=== PATIENT | female | born 1950 | race Caucasian/White ===

== ENCOUNTER 2016-10-09 09:12 | Day surgery (SDC) | payer MEDICARE, OTHER ==
--- NOTE | ~2016-10-09 | EGD ---
EGD REPORT [facility] [address] [address] NAME: HARDIK SMITH : [birth year] STATUS : [facility]#: [id number] AGE: 65 ADM/REG DATE : 10/09/16 MR#: [id number] REPORT SERV DATE: 10/09/16 DICTATED BY: GAVINO SILVA DATE: 10/09/16 REPORT STATUS : Draft TRANSCRIBED BY: [employer] DATE: 10/09/16 [facility] Patient Name: Hardik Smith Date of : 1950 Attending MD: GAVINO SILVA MD Procedure Date No Time: 10/09/2016 Procedure: Upper GI endoscopy Indications: Heartburn, Suspected esophageal reflux, Abdominal bloating Referring MD: RAFAEL KIM MD Medicines: as per anesthesia Complications: No immediate complications. Procedure: Pre-Anesthesia Assessment: - ASA Grade Assessment: III - A patient with severe systemic disease. After obtaining informed consent, the endoscope was passed under direct vision. Throughout the procedure, the patient's blood pressure, pulse, and oxygen saturations were monitored continuously. The GIF H190 [id number] was introduced through the mouth, and advanced to the third part of duodenum. The upper GI endoscopy was accomplished without difficulty. The patient tolerated the procedure. Findings: The examined esophagus was normal. The entire examined stomach was normal. The cardia and gastric fundus were normal on retroflexion. The examined duodenum was normal. Biopsies were taken with a cold forceps for histology. Impression: - Normal esophagus. - Normal stomach. - Normal examined duodenum. Biopsied. Recommendation: - Await pathology results. - Follow an antireflux regimen. - Continue present medications. Procedure Code(s): --- Professional --- 39214, Esophagogastroduodenoscopy, flexible, transoral; with biopsy, single or multiple Diagnosis Code(s): --- Professional --- R12, Heartburn EGD REPORT [facility] [address] [place], [place] [address] [address]. [address] NAME: HARDIK SMITH : [birth year] STATUS : [facility] PAT#: [id number] AGE: 65 ADM/REG DATE : 10/09/16 MR#: [id number] REPORT SERV DATE: 10/09/16 DICTATED BY: GVAINO SILVA. DATE: 10/09/16 REPORT STATUS : Draft TRANSCRIBED BY: [employer] DATE: 10/09/16 R14.0, Abdominal distension (gaseous) CPT copyright 2013 [employer]. All rights reserved. The codes documented in this report are preliminary and upon weld engineer review may be revised to meet current compliance requirements. GAVINO SILVA MD 10/09/2016 10:31 AM This report has been signed electronically. Number of Addenda: 0 Note Initiated On: 10/09/2016 10:14 AM Scope Withdrawal Time 0 hours 0 minutes 0 seconds [address] [place] [address]
--- NOTE | ~2016-10-09 | EGD ---
EGD REPORT [facility] [address] [address] NAME: HARDIK CHAU : [birth year] STATUS : [facility]#: [id number] AGE: 65 ADM/REG DATE : 10/09/16 MR#: [id number] REPORT SERV DATE: 10/09/16 DICTATED BY: GAVINO SILVA DATE: 10/09/16 REPORT STATUS : Draft TRANSCRIBED BY: [employer] DATE: 10/09/16 [facility] Patient Name: Hardik Chau Date of : 1950 Attending MD: GAVINO SILVA MD Procedure Date No Time: 10/09/2016 Procedure: Colonoscopy Indications: High risk colon cancer surveillance: Personal history of colonic polyps Referring MD: RAFAEL KIM MD Medicines: as per anesthesia Complications: No immediate complications. Procedure: Pre-Anesthesia Assessment: - ASA Grade Assessment: III - A patient with severe systemic disease. After I obtained informed consent, the scope was passed under direct vision. Throughout the procedure, the patient's blood pressure, pulse, and oxygen saturations were monitored continuously. The PCF [id number] was introduced through the anus and advanced to the cecum, identified by appendiceal orifice and ileocecal valve. The colonoscopy was somewhat difficult due to significant looping and a tortuous colon. The patient tolerated the procedure. The quality of the bowel preparation was adequate to identify polyps. Findings: The perianal and digital rectal examinations were normal. Internal hemorrhoids were found during endoscopy and were mild. Impression: - Internal hemorrhoids. Recommendation: - Repeat colonoscopy in 5 years for surveillance. Procedure Code(s): --- Professional --- 55183, Colonoscopy, flexible, proximal to splenic flexure; diagnostic, with or without collection of specimen(s) by brushing or washing, with or without colon decompression (separate procedure) Diagnosis Code(s): --- Professional --- K64.8, Other hemorrhoids Z86.010, Personal history of colonic polyps EGD REPORT [facility] [address] [facility] [place]. [address] NAME: HARDIK CHAU : [birth year] STATUS : [facility]#: [id number] AGE: 65 ADM/REG DATE : 10/09/16 MR#: [id number] REPORT SERV DATE: 10/09/16 DICTATED BY: GAVINO SILVA. DATE: 10/09/16 REPORT STATUS : Draft TRANSCRIBED BY: [employer] DATE: 10/09/16 CPT copyright 2013 [employer]. All rights reserved. The codes documented in this report are preliminary and upon hydraulic design engineer review may be revised to meet current compliance requirements. GAVINO SILVA MD 10/09/2016 10:51 AM This report has been signed electronically. Number of Addenda: 0 Note Initiated On: 10/09/2016 10:10 AM Scope Withdrawal Time 0 hours 7 minutes 14 seconds [address] [facility] [place] [address]
[~2016-10-09 09:12] MED LIST: ASAB PO; COREG3 PO; CRESTOR5 MG PO; DEXILANT OR; DRISDOL50000 UNT PO; ESTRACE1 MG PO; ESTRADIOL0.1 MG TD; ESTRADIOL1 MG OR; LEVOTHROID50 MCG PO; LIDODERM T; LINZESS 145 M145 MCG PO; LIPITOR20 PO; NEXIUM40 PO; PLAVIX PO; PREV30 PO; PROAIR HFA INH; PULMICORT180 MCG INH; PULMICORT90 MCG INH; SYN.05 PO; SYN075 PO; TRAZ50 PO; X25 PO; XANAX1 MG PO; ZESTORETIC PO; ZOCOR20 PO; ZOL50 PO
== END 2016-10-09 23:59 | disposition home health service (06) ==
LOC: DMU 09:12
PROVIDERS: Internal Medicine Gastroenterology
PROC: 0DJD8ZZ Inspection of Lower Intestinal Tract, Via Natural or Artificial Opening Endoscopic (ICD-10-PCS; principal; 2016-10-09 10:30)
PROC: 0DB98ZX Excision of Duodenum, Via Natural or Artificial Opening Endoscopic, Diagnostic (ICD-10-PCS; 2016-10-09 10:30)
DX: K64.8 Other hemorrhoids (principal); I10 Essential (primary) hypertension; E78.00 Pure hypercholesterolemia, unspecified; I25.10 Atherosclerotic heart disease of native coronary artery without angina pectoris; J44.9 Chronic obstructive pulmonary disease, unspecified; M19.90 Unspecified osteoarthritis, unspecified site; K21.9 Gastro-esophageal reflux disease without esophagitis; F32.9 Major depressive disorder, single episode, unspecified; E03.9 Hypothyroidism, unspecified; F41.0 Panic disorder [episodic paroxysmal anxiety]; Z86.010 Personal history of colon polyps; Z88.5 Allergy status to narcotic agent
CPT/HCPCS: 88305

== ENCOUNTER 2016-12-09 05:19 | Observation (INO) | payer MEDICARE, OTHER ==
--- NOTE | ~2016-12-09 | HP ---
History And Physical [facility] [address] [place]. [address] NAME: HARDIK CHAU : [birth year] STATUS : [facility] PAT#: [id number] AGE: 66 ADM/REG DATE : 12/09/16 MR#: [id number] REPORT SERV DATE: 12/09/16 DICTATED BY: DIANE ENGLAND DATE: 12/09/16 REPORT STATUS : Draft TRANSCRIBED BY: [employer] DATE: 12/09/16 DATE OF ADMISSION: 12/09/2016 PRIMARY PRODUCT SAFETY ADMINISTRATOR: Alvaro Padron M.D., Ph.D, F.A.C.C. CHIEF COMPLAINT: Palpitations. HISTORY OF PRESENT ILLNESS: This is a 66-year-old female with history of CAD, who awoke around 4 o'clock this morning experiencing palpitations. She states it was accompanied with significant dizziness, shaking and shortness of breath, but no chest pain. Because the heart "did not feel right," she took two nitroglycerin and also two aspirin. She also took her estradiol and Synthroid because she had not taken these in the last several days having run out. Shortly thereafter, she called EMS and EKG indicated atrial fibrillation with a heart rate of 148 beats per minute. IV Cardizem was started with bolus and she was transported here to our emergency department, where she had already attained normal sinus rhythm. She continues to be in normal sinus rhythm. She has no prior history of atrial fibrillation, although Holter monitor in the past has shown some PACs. She has been on carvedilol for this, but has not taken it in a week, saying that it has made her legs feel "weak." Again, she denies any recent chest pains. MEDICAL HISTORY: 1. Coronary artery disease with history of stent to the RCA x2 in 2007 and stent to the OM2 in 07/2015. 2. Mixed hyperlipidemia, intolerant of statins. 3. Chest pain syndrome. 4. Anxiety and depression. 5. History of gastritis. 6. Tobacco abuse. SURGICAL HISTORY: 1. Cholecystectomy. 2. Hysterectomy. 3. Right meniscus repair. HOME MEDICATIONS: Xanax 0.25 mg q.h.s. p.r.n., aspirin 81 q.h.s., Pulmicort one puff b.i.d. p.r.n., carvedilol 3.125 b.i.d., Plavix 75 daily, estradiol 1 mg q.h.s., Synthroid 50 mcg four times per week and 75 mcg other days of the week, Linzess 145 mcg before breakfast, Protonix 40 mg before breakfast, Zoloft 50 with breakfast, and trazodone 50 q.h.s. ALLERGIES: STATINS CAUSE MUSCLE WEAKNESS. CODEINE CAUSES SHORTNESS OF BREATH AND RASH. SOCIAL HISTORY: The patient is , at bedside. She works as a hr receptionist. She drinks two alcoholic beverages daily and smokes five to eight cigarettes per day. Denies illicit drug use. FAMILY HISTORY: Brother with coronary artery disease at age 45. History And Physical [address] [address] NAME: HARDIK CHAU : [birth year] STATUS : [facility] PAT#: [id number] AGE: 66 ADM/REG DATE : 12/09/16 MR#: [id number] REPORT SERV DATE: 12/09/16 DICTATED BY: DIANE ENGLAND DATE: 12/09/16 REPORT STATUS : Draft TRANSCRIBED BY: FREDDIE DATE: 12/09/16 REVIEW OF SYSTEMS: Negative, except as indicated above. PHYSICAL EXAMINATION: VITAL SIGNS: Blood pressure 119/61, heart rate 66, temperature 97.6, pulse oximetry 96% on room air. BMI 25.4. GENERAL: Well developed, well nourished, in no acute distress. HEENT: Anicteric. Normal EOM. Head, normocephalic. PERRLA, no xanthelasma. NECK: Supple. No JVD. Carotids normal without bruits. LUNGS: Clear to auscultation bilaterally anterior and posterior. Respirations even and unlabored. CARDIAC: S1, S2. Regular rate and rhythm. No murmurs, rubs, or gallops. No chest wall tenderness. ABDOMEN: Normal bowel sounds. Soft and nontender to palpation. No masses or organomegaly. EXTREMITIES: No peripheral edema. DP/PT and radial pulses palpable bilaterally. No clubbing or cyanosis. SKIN: Warm and dry. Normal turgor. No pallor or cyanosis. MUSCULOSKELETAL: Moving all extremities x4. Normal muscle strength. NEURO/PSYCH: Alert and oriented with appropriate affect. LABORATORY DATA: White blood count 4.8, hemoglobin 13.5, hematocrit 39.7. D-dimer less than 0.27. Sodium 145, potassium 3.6, BUN 16, creatinine 0.8. Troponin less than 0.02 x2. Chest x-ray shows lungs clear, no acute processes. EKGs, interpreted by myself, indicate normal sinus rhythm on two EKGs here at our facility with no ischemic changes. ASSESSMENT AND PLAN: 1. Paroxysmal atrial fibrillation, new onset in this 66-year-old female with a CHADS2-VASc score of 3. Discussed with the patient CVA prophylaxis measures. This was also discussed with the patient by Dr. Cruz. We recommend starting anticoagulation, and the patient was informed regarding lack of reversal agent on the newer oral anticoagulants. She agrees to starting, and we will provide her with a 30-day prescription and then subsequent refills. We will also plan to change her carvedilol to metoprolol 12.5 mg p.o. b.i.d. given her history of low blood pressure. I have also advised her to decrease alcohol consumption. The patient may benefit from outpatient sleep study as she does state that she does snore at times and wakes up not feeling rested. We will go ahead and discharge her home with an outpatient echocardiogram next week and then follow up with her primary strainer mill operator, Dr. Padron, in the next three to four weeks. 2. Coronary artery disease with history of stents. No current or recent chest pain. We will continue her home medications with the exception of discontinuing Plavix. It has been over a year since stent placement to the 2. 3. Mixed hyperlipidemia, not on statin therapy secondary to myalgias. 4. Tobacco use. Encouraged complete cessation. History And Physical [address] [address] NAME: HARDIK CHAU : [birth year] STATUS : [facility] PAT#: [id number] AGE: 66 ADM/REG DATE : 12/09/16 MR#: [id number] REPORT SERV DATE: 12/09/16 DICTATED BY: DIANE ENGLAND DATE: 12/09/16 REPORT STATUS : Draft TRANSCRIBED BY: FREDDIE DATE: 12/09/16 TONY/FREDDIE Diane England NP / [id number] CC: Tawana Barrientos, MSN, IRRIGATION MANAGER- Darrell Grajeda M.D. Alvaro Padron M.D., Ph.D, F.A.C.C.
[2016-12-09 06:12] LABS: BASOPHILS 0.6 %; BASOPHILS ABSOLUTE 0.03 10/3/uL (0.0-0.16); EOSINOPHILS 2.9 %; EOSINOPHILS ABSOLUTE 0.14 10/3/uL (0.0-0.53); ER CBC TAT 0 Hrs 08 Mins; HEMATOCRIT 39.7 % (36.0-48.0); HEMOGLOBIN 13.5 g/dL (12.0-16.0); LYMPHOCYTES 38.4 %; LYMPHOCYTES ABSOLUTE 1.86 10/3/uL (0.67-4.30); MANUAL DIFF NO %; MEAN CORPUSCULAR HEMOGLOB 33.8 pg (26.0-34.0); MEAN CORPUSCULAR VOLUME 99.3 fL (80-100); MEAN PLATELET VOLUME 9.3 fL (9.2-13.0); MONOCYTES 5.6 %; MONOCYTES ABSOLUTE 0.27 10/3/uL (0.21-1.20); NEUTROPHILS 52.5 %; NEUTROPHILS ABSOLUTE 2.54 10/3/uL (2.02-8.40); PLATELET COUNT 228 10/3/uL (150-400); WHITE BLOOD CELLS 4.8 10/3/uL (4.5-10.5)
[2016-12-09 06:21] LABS: PARTIAL THROMBO TIME 26.9 SEC (22.5-37.2); PROTIME (NOT ORD) 13.5 SEC (12.0-14.5)
[2016-12-09 06:29] LABS: BUN (BLOOD UREA NITROGEN) 16 MG/DL (6-23); CHEST PAIN PROFILE TAT 0 Hrs 25 Mins; CHLORIDE, SERUM 108 MMOL/L (96-112); CO2 (CARBON DIOXIDE) 26 MMOL/L (24-34); CREATININE 0.82 MG/DL (0.55-1.02); GFR AFRICAN AMERICAN 86 ML/MIN (>=60); GFR NON AFRICAN AMERICAN 74 ML/MIN (>=60); GLUCOSE, SERUM 91 MG/DL (60-99); POTASSIUM, SERUM 3.6 MMOL/L (3.5-5.3); SODIUM, SERUM 145 MMOL/L (135-148); TROPONIN I <0.02 NG/ML (<0.05)
[2016-12-09 06:35] LABS: D-DIMER QUANTITATIVE < 0.27 ug/mLFEU (< 0.50)
[2016-12-09] MEDS ORDERED: PROTONIX PO (09:21)
[2016-12-09 10:35] LABS: TROPONIN I 0.02 NG/ML (<0.05)
[2016-12-09] MEDS ORDERED: ELIQUIS 5 MG TAB5 MG PO (12:15)
[2016-12-09] MEDS ORDERED: LOP25 PO (12:16)
[2016-12-09] MEDS ORDERED: NITROQUICK0.3 MG SL (12:26)
[2016-12-09] MEDS ORDERED: ASAB PO (12:26)
[2016-12-09 15:23] LABS: T4 (THYROXINE) TOTAL 10.3 MCG/DL (4.5-12.0); ULTRASENSITIVE TSH 1.11 MCIU/ML (0.358-3.740)
== END 2016-12-09 12:49 | disposition home or self-care (01) ==
LOC: ER 05:19 → CDU1 07:30 → CDU2 07:44
PROVIDERS: Clinical Nurse Specialist; Specialist
DX: I48.0 Paroxysmal atrial fibrillation (principal); I25.10 Atherosclerotic heart disease of native coronary artery without angina pectoris; E78.2 Mixed hyperlipidemia; F41.9 Anxiety disorder, unspecified; F32.9 Major depressive disorder, single episode, unspecified; K29.70 Gastritis, unspecified, without bleeding; F17.210 Nicotine dependence, cigarettes, uncomplicated; Z95.5 Presence of coronary angioplasty implant and graft; Z90.49 Acquired absence of other specified parts of digestive tract; Z90.710 Acquired absence of both cervix and uterus; Z88.8 Allergy status to other drugs, medicaments and biological substances; Z88.5 Allergy status to narcotic agent; Z79.02 Long term (current) use of antithrombotics/antiplatelets; Z79.82 Long term (current) use of aspirin; Z79.818 Long term (current) use of other agents affecting estrogen receptors and estrogen levels; Z79.899 Other long term (current) drug therapy; Z98.890 Other specified postprocedural states
CPT/HCPCS: 71010; 80048; 83735; 84436; 84443; 84484; 85025; 85379; 85610; 85730; 93005; 99285; A9270-GY; G0378